=== PATIENT | female | born 1940 | race Caucasian/White ===

== ENCOUNTER 2025-08-21 09:58 | Outpatient (AMB) | payer MEDICARE, SELFPAY ==
--- NOTE | 2025-08-21 10:08 | A.OFFVIS_ITS ---
Intake Visit Reasons: Cognitive impairment- New Pt Paperwork Scanned in Allergies No Known Allergies Allergy (Verified 08/19/25 08:02) HPI Comments Details: This is a 84-year-old right-handed woman who is here with her son Patrick for neurological consultation. In the last 3 years she has been noted to have some personality change in that she no longer goes to visit her daughter or drive to see her sister and Shadia. She has stopped going to the senior center. She feels that it all started after COVID. She now has a sense of anxiety and some depression and some concerns about end of life. In the last few years she has lost a few of her friends. She has also developed macular degeneration and gets shots in her eyes but her vision is good enough that she still has a driving license and a car. She has become somewhat socially withdrawn. She sleeps well and eats well. She has recently been changed from Zoloft 50 mg 2 Celexa. She has type 2 diabetes and hypertension. She Matt time watching TV mostly game shows and soap opera shows and does some reading of mystery books. She is up-to-date on her medications and dosages and responds to questions accurately. 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 She has 3 children who live in the area: Erna the oldest lives in [place], Patrick and Vignesh. She says that she has had increased anxiety lately. She also feels that she is walking a little slower. [facility] Medical History (Updated 08/21/25 @ 10:26 by Brianda Jackson MD) Cognitive impairment Review of Systems Psych Reports anxiety, Reports depression and Reports anhedonia Physical Exam Neuro Other: ?Mini Mental Status Exam Level of Consciousness:?Alert.? Orientation:?Knows correct year, month, date, day and season.?Knows correct city, county and state. Knows correct location and floor.? Registration:?Able to register 3 objects.? Attention:?Serial 7's performed accurately to 93.? Recall:?Able to recall 2 out of 3 objects, and 3/3 when given multiple choices.? Language:?Normal spontaneous speech, fluency, repetition, naming, comprehension, reading, and writing.? Total Score:?29/30.? Neurological Abnormal neurological findings:??MMSE 29/30.? Mental Status:?Alert and oriented X 3.?Normal attention, orientation, memory, and affect.? Cranial Nerves:?Pupils are equal, round and reactive to light. Fundoscopy shows normal disc bilaterally. External occular muscles are intact. Visual macdonald are full, no ptosis. Face is symmetrical, no facial weakness or droop. Facial sensations are normal. Tongue protrudes in midline. Palate elevates symmetrically. Shoulder shrugging is normal.? Motor Examination:?Normal muscle tone, bulk and strength.?No atrophy or fasciculations.?No drift of the extended upper extremities.?Deep tendon re flexes are 2+.?Plantars are flexor.? Motor Strength:? Proximal Muscles (out of 5):?5 Distal Muscles (out of 5):?5 Neck Flexors (out of 5):?5 Neck Extensors (out of 5):?5 Deltoid (out of 5):?5 Biceps (out of 5):?5 Triceps (out of 5):?5 Serratus Anterior (out of 5):?5 Wrist Extensors (out of 5):?5 APB (out of 5):?5 Finger Spread (out of 5):?5 Ileopsoas (out of 5):?5 Quadriceps (out of 5):?5 Hamstrings (out of 5):?5 Tibialis Anterior (out of 5):?5 Peronei (out of 5):?5 EDB (out of 5):?5 Gastrocnemius (out of 5):?5 Straight Leg Raising:?90 degrees.? Sensory Exam:?Normal light touch, temperature, pinprick, vibration and joint-position sensations.?Rhomberg sign is absent.? Coordination:?No ataxia,?no titubation,?iwokua-ht-vcid, spog-iukw-ervc test, and rapid alternating movements were normal.? Gait Exam:?Within normal limits.? Cerebellar Signs:?Bwuaga-cm-wsrq and mtfl-dw-cpcm is normal.?No dysdiadochokinesia.? Extrapyramidal System:?No tremor or?rigidity, normal facial expressions.?No bradykinesia. No bradyphrenia. Normal arm swing and posture. No propulsion or retropulsion.? Speech:?Normal,?no dysphasia or dysarthria.? General Examination GENERAL APPEARANCE:??normal,?in no acute distress?,?normal,?in no acute distress.? HEAD:??normocephalic,?atraumatic.? EYES:??sclera non-icteric,?conjunctiva clear.? EARS:??auditory canal clear,?tympanic membrane intact, clear.? NOSE:??no lesions.? ORAL CAVITY:??gums normal,?mucosa moist,?no lesions.? THROAT:??clear.? NECK/THYROID:??no cervical lymphadenopathy,?thyroid normal,?neck supple, full range of motion,?no carotid bruit.? SKIN:??no rashes,?no significant birthmarks.? HEART:??S1, S2 normal,?no murmurs?,?S1, S2 normal,?no murmurs.? LUNGS:??clear anteriorly and posteriorly?,?clear anteriorly and post eriorly.? CHEST:??no gross rib deformity,?clear to auscultation.? BACK:??normal exam of spine.? MUSCULOSKELETAL:??normal.? EXTREMITIES:??no edema?,?no edema.? PERIPHERAL PULSES:??normal.? PSYCH:??alert, oriented,?cognitive function intact,?cooperative with exam?,?alert, oriented,?cognitive function intact,?cooperative with exam.? Assessment & Plan Assessment & Plan (1) MCI (mild cognitive impairment): Code(s): G31.84 - Mild cognitive impairment of uncertain or unknown etiology Category: Medical (2) Depression with anxiety: Code(s): F41.8 - Other specified anxiety disorders Category: Medical Plan MRI brain, EEG, labs Orders: Orders MR head/brain wo con 4 Weeks G31.84 - Mild cognitive impairment of uncertain or unknown etiology TSH reflex Free T4 Today G31.84 - Mild cognitive impairment of uncertain or unknown etiology Vitamin B12 and Folate Today G31.84 - Mild cognitive impairment of uncertain or unknown etiology EEG Routine Today G31.84 - Mild cognitive impairment of uncertain or unknown etiology Basic Metabolic Panel Today G31.84 - Mild cognitive impairment of uncertain or unknown etiology Coding Level of Care Code New Pt Level 5 (34152) Diagnoses MCI (mild cognitive impairment) G384 Depression with anxiety F41.8
--- OUTSIDE RECORDS SUMMARY | 2025-08-21 11:38 | XMS_ITS ---
Author Name [facility] Organization Unknown Care Team Organization Name Specialty Phone Email Start Date End Da te [facility] 05/15/2025 [facility] Wanda Mcbride Primary Care 03/04/202304/26 [facility] Laisha Zamora Primary Care 08/03/2022 05/14/20
--- OUTSIDE RECORDS SUMMARY | 2025-08-21 11:38 | XMS_ITS | Encounter Summary ---
Author Organization [facility] [place] [place] [address] Care Team Providers Care Supervisor Volunteer Services Name Role Phone Deborah Nagy MD Primary Care Provider [phone] Encounter Details Date Type Department Care Team (Late st Contact Info) Description 12/20/2024 Nurse Triage Adult Medicine [address] [phone] Wanda Mcbride PA [address] [place] [address] Social History Tobacco Use Types Packs/Day Years Used Date Smoking Tobacco: Never Smokeless Tobacco: Never Alcohol Use Standard Drinks/Week Comments No 0 (1 standard drink = 0.6 oz pur e alcohol) Comments Unknown Sex and Gender Information Value Date Recorded Sex Assigned at Female 10/16/2024 1:19 PM EST Legal Sex Female 5:47 PM EST Gender Identity Female 10/16/2024 1:19 PM EST Sexual Orientation Straight 10/16/2024 1: 19 PM EST documented as of this encounter Plan of Treatment Upcoming Encounters Date Type Department Care Team (Late st Contact Info) Description 10/02/2025 11:00 AM EST Appointment Radiology Department - [address] [phone] 10/07/2025 10:30 AM EST Office Visit Endocrinology - [address] [phone] Laisha Zamora PA [address] [place] [address] 10/14/2025 11:30 AM EST Office Visit Adult Medicine South - [address] [phone] Wanda Mcbride PA [address] [place] [address] documented as of this encounter Visit Diagnoses Not on filedocumented in this encounter Care Teams Supervisor Volunteer Services Relationship Specialty Start Date End Date Deborah Nagy MD [address] [place] [address] PCP - General Internal Medicine 06/23/21 documented as of this encounter
--- OUTSIDE RECORDS SUMMARY | 2025-08-21 11:38 | XMS_ITS | Clinical Summary ---
Author Organization Patient Business Ser [facility] Address [address] [place] [address] Care Team Providers Care Ball Winder Name Role Phone Deborah Nagy MD Primary Care Provider [phone] Allergies No known active allergies Medications FREESTYLE LANCETS MISC Use once daily to check blood sugar 3 Active insulin syringe-needle U-100 0.3 mL 31 gauge x 5/16 syringe USE TO INJECT INSULIN ONCE AT BEDTIME 4 Active magnesium glycinate 100 mg magnesium capsule Active blood sugar diagnostic (FreeStyle Lite Strips) test stripIndicatio ns:Type 2 diabetes mellitus with diabetic microalbuminur ia, without long-term current use of insulin ([facility] V24, [facility] V28) TEST ONCE DAILY TO CHECK BLOOD SUGAR 100 strip 1 5 Active insulin glargine,hum.r ec.anlog (Basaglar KwikPen U-100 Insulin) 100 unit/mL (3 mL) injection pen Inject 14 Units under the skin 1 (one) time each day. 45 mL 3 5 Active metFORMIN XR (GLUCOPHAGE-XR ) 500 mg 24 hr tablet Take 1 tablet (500 mg total) by mouth 1 (one) time each day with breakfast. 90 tablet 1 5 Active lisinopriL (PRINIVIL,ZEST RIL) 20 mg tablet Take 1 tablet (20 mg total) by mouth 1 (one) time each day. 90 each 1 5 11/13/19 26 Active sertraline (ZOLOFT) 25 mg tablet Take 1 tablet (25 mg total) by mouth at bedtime. 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 ia, without long-term current use of insulin ([facility] V24, [facility] V28) USE TO INJECT INSULIN AT BEDTIME 100 each 2 5 Active furosemide (LASIX) 20 mg tablet TAKE 1 TABLET EVERY OTHER DAY 45 tablet 1 5 Active furosemide (LASIX) 20 mg tablet TAKE 1 TABLET EVERY OTHER DAY 45 tablet 1 5 07/31/20 25 Discontinued Active Problems Problem Noted Date Diagnosed Date Subclinical hypothyroidism 08/21/2024 Microalbuminuria 05/30/2022 Type II diabetes mellitus wi th renal manifestations ([facility] V24, [facility] V28) 01/20/2022 Osteopenia 07/02/2019 Overview (08/21/2024): 10/2021: T-score lumbar (-1.4); hip (-2.0); FRAX 15% Dysthymia 11/09/2017 Familial tremor 10/18/2016 Overview (08/21/2024): Dr. Stanley in neurology Bronchial carcinoid tumors ([facility] V28) 008 Overview (04/11/2025): Seen at [facility] 2007 Allergic rhinitis 12/07/2005 Essential hypertension, benign 12/07/2005 Mixed hyperlipidemia 12/07/2005 Resolved Problems Problem Noted Date Diagnosed Date Resolved Date Colonoscopy refused 12/25/2024 04/11/20 25 Overview (12/25/2024): Per referral office message (12/25/24) Encounters Date Type Department Care Team Description 08/20/2025 Telephone Endocrinology [address] [phone] Laisha Zamora PA 08/16/[address] [phone] Laisha Zamora PA 07/30/[address] [phone] Liasha Zamora PA 06/07/2025 10:15 AM EDT Office Visit Adult Medicine [address] [phone] Deborah Nagy MD Essential hypertension, benign (Primary Dx); Type 2 diabetes mellitus with diabetic microalbuminuria, without long-term current use of insulin ([facility] V24, [facility] V28); Mixed hyperlipidemia; Hyponatremia from Last 3 Months Immunizations Immunization Administration Dates Next Due H1N1 Inj Preservative Free 10/20/2009 Influenza Quadravalent, MDCK , 0.5ml, with preservative (Flucelvax) 6mo and older 08/01/2017 Influenza trivalent, 0.5mL ( Fluad) 65yo and older 06/14/2024,06/10/2023,07/06/2022,06/25,07/02/2019,06/14/2018,06/23/2005 Influenza trivalent, 0.5mL, preservative free (Fluarix; FluLaval; Fluzone) ages 6mo and older (Afluria) 3 years and older 07/15/2008,06/26/2007 Influenza trivalent, with pr eservative (Fluzone; Afluria) 6mo and older 08/05/2016,08/04/2015,07/29/2014,07/20,08/07/2012,06/16/2011,06/09/2010 ,06/27/2009 Pneumococcal conjugate 13 va lent (Prevnar 13, PCV13) 2mo and older 11/21/2015 Pneumococcal conjugate 20 va lent (Prevnar 20, PCV 20) 2mo and older 03/19/2024 Pneumococcal polysaccharide 23 valent (Pneumovax 23) 2yo and older 02/22/2007 RSV, bivalent, protein subun it RSVpreF, 0.5mL, Preservative Free (Arexvy) 50yo and older 06/16/2023 Td Tetanus diptheria (Tdvax) 7yo and older 12/24/2022,06/26/2007 Tdap Tetanus diptheria acell ular pertussis (Boostrix; Adacel) 7yo and older 07/07/2012 Zoster recombinant (Shingrix ) 19yo and older 03/19/2024,12/20/2023 Surgical History Surgery Date Site/Laterality Comments TUBAL LIGATION HYSTERECTOMY 1970 : endometriosis, [place] COLONOSCOPY 10/07/2003 : normal COLONOSCOPY 10/18/2011 normal BREAST LUMPECTOMY 1996 Left : cancer, left, with radiation therapy BREAST REDUCTION 1998 Right right breast MULTIPLE TOOTH EXTRACTIONS HAND SURGERY Right ganglion Medical History Medical History Date Comments Allergic rhinitis, cause unspecified 12/07/2005 Subclinical hypothyroidism Osteopenia History of breast cancer 09/09/2005 Left br east Bronchial carcinoid tumors ([facility] V28) 008 Essential hypertension, benign 12/07/2005 Familial tremor 10/18/2016 Dr. Jaden manley n neurology Type II diabetes mellitus wi th renal manifestations ([facility] V24, [facility] V28) 01/20/2022 Microalbuminuria 05/30/2022 Mixed hyperlipidemia 12/07/2005 Family History Medical History Relation Name Comments Diabetes Brother Other: blockage in colon Father Heart attack Mother Hypertension Mother [place] Diabetes Sister Breast cancer Neg Hx Colon cancer Neg Hx Ovarian cancer Neg Hx Relation Name Status Comments Brother Father Maternal Grandfather Maternal Grandmother Mother Paternal Grandfather Paternal Grandmother Sister Social History Tobacco Use Types Packs/Day Years Used Date Smoking Tobacco: Never Smokeless Tobacco: Never Tobacco Cessation:Counseling Given: Not Answered Alcohol Use Standard Drinks/Week Comments No 0 (1 standard drink = 0.6 oz pur e alcohol) Comments No Sex and Gender Information Value Date Recorded Sex Assigned at Female 10/16/2024 1:19 PM EST Legal Sex Female 5:47 PM EST Gender Identity Female 10/16/2024 1:19 PM EST Sexual Orientation Straight 10/16/2024 1: 19 PM EST Obstetrics History Para Term AB IAB SAB Ectopic Multiple Livin g Live Births 3 3 3 Date Outcome GA Total Labor Labor/2nd/3rd Weight Sex Type Anes PTL Gifty A1 A5 Name Clin Term Term Term Last Filed Vital Signs Vital Sign Reading Time Taken Comments Blood Pressure 132/70 06/07/2025 10:16 AM EDT Pulse 75 06/07/2025 10:16 AM EDT Temperature 35.9 C (96.6 F) 06/07/2025 10:16 AM EDT Respiratory Rate 14 06/07/2025 10:16 AM EDT Oxygen Saturation 97% 06/07/2025 10:16 AM EDT Inhaled Oxygen Concentration - - Weight 74.9 kg (165 lb 3.2 oz) 06/07/2025 10:16 AM EDT Height 167.6 cm (5' 6 ) 06/07/2025 10:16 AM EDT Body Mass Index 26.66 06/07/2025 10:16 AM EDT Plan of Treatment Upcoming Encounters Date Type Department Care Team (Late st Contact Info) Description 10/02/2025 11:00 AM EST Appointment Radiology Department - [address] [phone] 10/07/2025 10:30 AM EST Office Visit Endocrinology - [address] [phone] Laisha Zamora PA [address] [place] [address] 10/14/2025 11:30 AM EST Office Visit Adult Medicine [address] [phone] Wanda Mcbride PA [address] [place] [address] Health Maintenance Due Date Last Done Comments Colorectal Cancer Screening: Colonoscopy 1941 Social Influencers of Health Screening 08/01/2022 Depression Screening 09/26/2024 06/14/2024 COVID-19 Vaccine ( season) 2025 06/29/2024, 06/16/2023, 07/06/2022, Additional history exists Influenza Vaccine (#1) 2025 , 06/14/2024, 06/10/2023, Additional history exists Falls Risk Assessment 06/14/2025 06/14/2024, 024 Medicare Annual Wellness Visit 06/14/2025 06/14/2024 Diabetes: Annual Foot Exam 07/30/2025 07/30/2024 Diabetes: Annual Urine Albumin-Creatinine Ratio (uACR) 10/16/2025 10/16/2024, 06/14/2024 Diabetes: Blood Sugar Control Test (HGBA1C) 11/17/2025 05/17/2025, 02/13/2025, 10/16/2024, Additional history exists Diabetes: Annual Retina Eye Exam 11/19/2025 11/19/2024, 12/19/2023 Diabetes: Annual GFR (Glomerular Filtration Rate) 06/07/2026 06/07/2025, 05/17/2025, 10/16/2024, Additional history exists Hypertension/CHF/CAD Annual BMP Blood Test 06/07/2026 06/07/2025, 05/17/2025, 10/16/2024, Additional history exists Cholesterol Screening (Lipid Panel) 06/14/2029 06/14/2024, 06/14/2024 Osteoporosis Screening (Bone Density Screening) 11/23/2031 11/23/2021, 04/16/2019 DTaP,Tdap,and Td Vaccines (4 - Td or Tdap) 12/24/2032 12/24/2022, 07/07/2012, 06/26/2007 RSV Immunization Adult Patients Completed 06/16/2023 Zoster Vaccines Completed 03/19/2024, 12/20/2023 Pneumococcal Vaccine: 50+ Years Completed 06/21/2024, 03/19/2024, 11/21/2015, Additional history exists HIB Vaccines Aged Out No longer eligi ble based on patient's age to complete this topic HPV Vaccines Aged Out No longer eligi ble based on patient's age to complete this topic Hepatitis A Vaccines Aged Out No long er eligible based on patient's age to complete this topic Hepatitis B Vaccines Aged Out No long er eligible based on patient's age to complete this topic IPV Vaccines Aged Out No longer eligi ble based on patient's age to complete this topic MMR Vaccines Aged Out No longer eligi ble based on patient's age to complete this topic Meningococcal ACWY Vaccine Aged Out N o longer eligible based on patient's age to complete this topic Meningococcal B Vaccine Aged Out No l onger eligible based on patient's age to complete this topic RSV Immunization Patients Under 20 months Aged Out No longer eligible based on patient's age to complete this topic Varicella Vaccines Aged Out No longer eligible based on patient's age to complete this topic Procedures Procedure Name Priority Date/Time Associated Diagnosis Comments BASIC METABOLIC PANEL Routine 06/07/2025 10:54 AM EDT Hyponatremia HEMOGLOBIN A1C Routine 05/17/2025 11:19 AM EDT Weakness Type 2 diabetes mellitus with diabetic microalbuminuria, without long-term current use of insulin ([facility] V24, [facility] V28) EXTERNAL DIABETIC RETINA EYE EXAM 11/19/2024 MICROALBUMIN CREATININE URINE RATIO Routine 10/16/2024 12:18 PM EST Type 2 diabetes mellitus with diabetic microalbuminuria, without long-term current use of insulin ([facility] V24, [facility] V28) DEPRESSION SCREENING Routine 06/14/2024 LIPID PANEL Routine 06/14/2024 FALLS RISK ASSESSMENT Routine 02/14/2024 DXA BONE DENSITY STUDY 1+ SITS AXIAL SKEL Routine 11/23/2021 10:56 AM EST Other specified disorders of bone density and structure, other site from Last 3 Months or Most Recently Relevant to Health Maintenance Results * (ABNORMAL) Basic metabolic panel (06/07/2025 10:54 AM EDT) Sodium 131(L) 133 - 145 mmol/L LAB CHEMISTRY METHOD 06/07/2025 3:28 PM EDT [facility] Potassium 4.5 3.5 - 5.5 mmol/L LAB CHEMISTRY METHOD 06/07/2025 3:28 PM [facility] Chloride 96 96 - 110 mmol/L LAB CHEMISTRY METHOD 06/07/2025 3:28 PM [facility] CO2 25 21 - 32 mmol/L LAB CHEMISTRY METHOD 06/07/2025 3:28 PM [facility] Anion Gap 10 3 - 11 LAB CHEMISTRY METHOD 06/07/2025 3:28 PM [facility] Glucose 116(H) 70 - 100 mg/dL LAB CHEMISTRY METHOD 06/07/2025 3:28 PM [facility] BUN 19 5 - 25 mg/dL LAB CHEMISTRY METHOD 06/07/2025 3:28 PM [facility] Creatinine 0.74 0.50 - 1.10 mg/dL LAB CHEMISTRY METHOD 06/07/2025 3:28 PM [facility] eGFR 80 >=60 mL/min/1. 73m2 LAB CHEMISTRY METHOD 06/07/2025 3:28 PM [facility] Comment:Calculation based on the Chronic Kidney Disease Epidemiology Collaboration (CKD-EPI) equation refit without adjustment for race. BUN/Creatinine Ratio 25.7 LAB CHEMISTRY METHOD 06/07/2025 3:28 PM [facility] Calcium 9.8 8.5 - 10.5 mg/dL LAB CHEMISTRY METHOD 06/07/2025 3:28 PM [facility] Blood Venous blood specimen / Unknown Venipuncture / Unknown 06/07/2025 10:54 AM EDT 06/07/2025 10:54 AM EDT us Deborah Nagy MD LAB BLOOD ORDERABLES Final Resul t [facility] [address] [place] [address], [place] [phone] * Hemoglobin A1c (05/17/2025 11:19 AM EDT) Hemoglobin A1C 6.2 <6.5 % LAB CHEMISTRY METHOD 05/17/2025 8:37 PM EDT [facility] Mean Bld Glu Estim. 131 mg/dL LAB CHEMISTRY METHOD 05/17/2025 8:37 PM EDT [facility] Blood Venous blood specimen / Unknown Venipuncture / Unknown 05/17/2025 11:19 AM EDT 05/17/2025 11:28 AM EDT Deborah Nagy MD LAB BLOOD ORDERABLES Final Resul t Performing Organization Address [facility]/State/ZIP Co de Phone Number [facility] [address] [place] [address], [place] [phone] * External Diabetic Retina Eye Exam Report (11/19/2024) Anatomical Region Laterality Modality Ultrasound us Provider [facility] US PROCEDURES Final Result * (ABNORMAL) Microalbumin creatinine urine ratio (10/16/2024 12:18 PM EST) Creatinine, Urine 63.0 mg/dL LAB CHEMISTRY METHOD 10/16/2024 3:34 PM EST [facility] Microalb, Ur 37.2(H) 0.0 - 29.0 mg/L LAB CHEMISTRY METHOD 10/16/2024 3:34 PM EST [facility] Microalb/Crea t Ratio 59(H) <30 mg/g creat LAB CHEMISTRY METHOD 10/16/2024 3:34 PM EST [facility] Urine Urine specimen from urethra / Unknown Non-blood Collection / Unknown 10/16/2024 12:18 PM EST 10/16/2024 12:18 PM EST Wanda GLASGOW LAB URINE ORDERABLES Final Re sult [facility] [address] [place] [address], * Depression Screening (06/14/2024) Depression Screening Abstracted Historical Provider HEALTH MAINTENANCE Final Result * Lipid panel (06/14/2024) LDL/HDL Ratio 3 0 - 4 Triglycerides 113 0 - 150 mg/dL Cholesterol 185 0 - 200 mg/dL HDL 74 >=40 mg/dL LDL Cholesterol 89 0 - 100 mg/dL Blood Venous blood specimen / Unknown [facility] Provider MD LAB BLOOD ORDERABLES Anita l Result * Falls Risk Assessment (02/14/2024) Pathologist [facility] Falls Risk Assessment Abstracted [facility] Provider [place] HEALTH MAINTENANCE Final Result * DXA BONE DENSITY STUDY 1+ SITS AXIAL SKEL (11/23/2021 10:56 AM EST) Anatomical Region Laterality Modality Bone Densitometr y 05/25/2021 11:3 7 AM EDT Narrative 11/23/2021 12:16 PM EST BONE DENSITY SCAN (DEXA): FINDINGS: Lumbar Spine T-score is -1.4. (SD relative to 20-29 y/o adult) Z-score is 1.3. (SD relative to age matched peers) This is considered osteopenia by WHO criteria. Left Hip T-score is -2.0. Z-score is 0.3. This is considered osteopenia by WHO criteria. Comparison exam(s): As recent as 04/16/2019 and as far back as 09/06/2001. No statistically significant change in bone mineral density compared with previous and baseline exams. IMPRESSION: IMPRESSION: Osteopenia by WHO criteria. This patient has a 15% risk of major osteoporotic fracture and a 4.3% risk of hip fracture over the next 10 years. (World Health Organization Fracture Risk Assessment) [facility] Department of Internal Medicine recommends using National Osteoporosis Foundation (NOF) guidelines in treatment decisions related to osteoporosis. NOF guidelines suggest considering treatment for postmenopausal women and men aged 50 or older presenting with the following: History of hip or vertebral fracture. T-score = -2.5 (DXA) at the femoral neck, total hip, or spine, after appropriate evaluation to exclude secondary causes. Low bone mass (T-score between -1.0 and -2.5 at the femoral neck or spine) AND a 10-year probability of a hip fracture = 3% OR a 10-year probability of a major osteoporosis-related fracture = 20% based on the [place]-adapted WHO algorithm Please note that all treatment decisions require clinical judgment and consideration of individual patient factors, including patient preferences, co-morbidities, previous drug use, risk factors not captured in the FRAX model (e.g., frailty, falls, vitamin D deficiency, increased bone turnover, interval significant decline in bone density) and possible under- or over-estimation of fracture risk by FRAX. Optional alternative screening schedule based on becka Morris., [facility] October 14, 2011 for patients with osteopenia (based on hip BMD T-score) is as follows: * advanced osteopenia (T scores -2.00 to -2.49), BMD testing every year * moderate osteopenia (T scores -1.50 to -1.99), BMD testing every 5 years mild osteopenia or normal BMD (T scores -1.50 and higher), BMD testing every 15 years Procedure Note Nighat Son MD - 09/14/2022 BONE DENSITY SCAN (DEXA): FINDINGS: Lumbar Spine T-score is -1.4. (SD relative to 20-29 y/o adult) Z-score is 1.3. (SD relative to age matched peers) This is considered osteopenia by WHO criteria. Left Hip T-score is -2.0. Z-score is 0.3. This is considered osteopenia by WHO criteria. Comparison exam(s): As recent as 04/16/2019 and as far back as 09/06/2001.No statistically significant change in bone mineral density compared with previous andbaseline exams. IMPRESSION: IMPRESSION: Osteopenia by WHO criteria. This patient has a 15% risk of majorosteoporotic fracture and a 4.3% risk of hip fracture over the next 10 years. (World HealthOrganization Fracture Risk Assessment) [facility] Department of Internal Medicine recommendsusing National Osteoporosis Foundation (NOF) guidelines in treatment decisions related toosteoporosis. NOF guidelines suggest considering treatment for postmenopausal women and menaged 50 or older presenting with the following: History of hip or vertebral fracture. T-score = -2.5 (DXA) at the femoral neck, total hip, or spine, afterappropriate evaluation to exclude secondary causes. Low bone mass (T-score between -1.0 and -2.5 at the femoral neck or spine)AND a 10-year probability of a hip fracture = 3% OR a 10-year probability of a majorosteoporosis-related fracture = 20% based on the [place]-adapted WHO algorithm Please note that all treatment decisions require clinical judgment andconsideration of individual patient factors, including patient preferences, co- morbidities,previous drug use, risk factors not captured in the FRAX model (e.g., frailty, falls, vitaminD deficiency, increased bone turnover, interval significant decline in bone density) andpossible under- or over-estimation of fracture risk by FRAX. Optional alternative screening schedule based on rafy Morris al., [place] 2011 for patients with osteopenia (based on hip BMD T-score) is as follows: * advanced osteopenia (T scores -2.00 to -2.49), BMD testing every year * moderate osteopenia (T scores -1.50 to -1.99), BMD testing every 5years mild osteopenia or normal BMD (T scores -1.50 and higher), BMD testingevery 15 years Laisha GLASGOW [facility] DXA PROCEDURES Final Result from Last 3 Months or Most Recently Relevant to Health Maintenance Insurance [facility]IC[facility] Care Teams Ball Winder Relationship Specialty Start Date End Date Deborah Nagy MD [address] [place] [address] PCP - General Internal Medicine 06/23/21
--- OUTSIDE RECORDS SUMMARY | 2025-08-21 11:38 | XMS_ITS | Encounter Summary ---
Author Organization [facility] [place] [address] Care Team Providers Care [employer] Machine Set Up Mechanic Name Role Phone Deborah Nagy MD Primary Care Provider [phone] Encounter Details Date Type Department Care Team (Late st Contact Info) Description 08/20/2025 Telephone Endocrinology - [place] [address] [place] [phone] Laisha Zamora PA [address] [place] [address] Social History Tobacco Use Types Packs/Day Years [...] PM EST documented as of this encounter Progress Notes * Haylie Palomo - 08/20/2025 9:00 AM EST Endocrine Call Primary endocrine provider: Laisha Zamora PA-C Is the endocrine provider in the office toady?: yes Who is calling? [employer]. If not the patient or parent/guardian please check for authorization to share/verbal release. Why is the person calling? [facility] is calling to request the patients most recent office notes signed my supervising MD. Please fax to [phone] documented in this encounter Plan of Treatment Upcoming Encounters Date Type Department Care Team (Late st Contact Info) Description 10/02/2025 11:00 AM EST Appointment Radiology Department - [address] [phone] 10/07/2025 10:30 AM EST Office Visit Endocrinology - [address] [phone] Laisha Zamora PA [address] [place] [address] 10/14/2025 11:30 AM EST Office Visit Adult Medicine [facility] - [address] [phone] Wanda Mcbride PA [address] [place] [address] documented as of this encounter Visit Diagnoses Not on filedocumented in this encounter Care Teams [employer] Set Up Mechanic Relationship Specialty Start Date End Date Deborah Nagy MD [address] [place] [address] PCP - General Internal Medicine 06/23/21 documented as of this encounter
--- OUTSIDE RECORDS SUMMARY | 2025-08-21 11:38 | XMS_ITS | Clinical Summary ---
Author Organization [facility] Address [address] [place] [address] Phone Care Team Providers Care Warehouse Stocker Name Role Phone Mehul Mendiola MD Primary Care Provider Unavail able Active Problems Problem Noted Date Diagnosed Date Diabetes mellitus 05/23/2014 Overview (11/15/2014): Diabetes mellitus Social History Tobacco Use Types Packs/Day Years Used Date Smoking Tobacco: Former Education Answer Date Recorded Are you interested in more education? Not on dorothy e 01/21/2023 Are you concerned about learning? Not on file 01/21/2023 No 01/21/2023 No 01/21/2023 Digital Access Answer Date Recorded No 02/21/2023 No 02/21/2023 No 02/21/2023 Reliable internet access at home? Not on file 02/21/2023 Device with a working camera? Not on file Comments Unknown Sex and Gender Information Value Date Recorded Sex Assigned at Not on file Legal Sex Female 10:09 AM EDT Gender Identity Not on file Sexual Orientation Not on file Last Filed Vital Signs Vital Sign Reading Time Taken Comments Blood Pressure 139/70 05/15/2014 1:52 PM EDT Pulse 57 05/15/2014 1:52 PM EDT Temperature 36.3 C (97.4 F) 05/15/2014 1:52 PM EDT Respiratory Rate 16 05/15/2014 1:52 PM EDT Oxygen Saturation - - Inhaled Oxygen Concentration - - Weight 80.2 kg (176 lb 12.9 oz) 05/15/2014 1:52 PM EDT Height 167.5 cm (5' 5.95 ) 05/15/2014 1:52 PM ED T Body Mass Index 28.59 05/15/2014 1:52 PM EDT Plan of Treatment Health Maintenance Due Date Last Done Comments BLOOD PRESSURE 1941 HEMOGLOBIN A1C 1941 DEPRESSION SCREENING 1953 LIPID PANEL 11/28/1959 ZOSTER VACCINES (1 of 2) 11/28/1991 OSTEOPOROSIS SCREENING INITIAL (ONE-TIME) 2006 DIABETIC EYE EXAM 11/15/2014 URINE MICROALBUMIN/CREATININE RATIO 11/15/2014 RSV VACCINE (1 - 1-dose 75+ series) 2016 Adult Td,Tdap Booster 07/07/2022 07/07/2012, 007 INFLUENZA VACCINE (#1) 2025 0, 07/02/2019, 06/14/2018, Additional history exists COVID-19 VACCINE ( season) 2025 11/16/2020, 10/25/2020 PNEUMOCOCCAL VACCINES (50+ years) Completed 11/21/2015, 02/22/2007 HEPATITIS A VACCINES Aged Out No long er eligible based on patient's age to complete this topic HIB VACCINES Aged Out No longer eligi ble based on patient's age to complete this topic IPV VACCINES Aged Out No longer eligi ble based on patient's age to complete this topic MENINGOCOCCAL VACCINES (ACWY) Aged Out No longer eligible based on patient's age to complete this topic MENINGOCOCCAL VACCINES (B) Aged Out N o longer eligible based on patient's age to complete this topic Medical Devices Not on file Insurance MEDICARE PART A & B [employer] CROSS MEDEX SUPPLEMENT MEDICARE PART A & B [employer] MEDEX SUPPLEMENT MEDICARE PART A & B [employer] MEDEX SUPPLEMENT MEDICARE PART A & B [employer] MEDEX SUPPLEMENT MEDICARE PART A & B [employer] MEDEX SUPPLEMENT MEDICARE PART A & B [employer] MEDEX SUPPLEMENT MEDICARE PART A & B [employer] MEDEX SUPPLEMENT MEDICARE PART A & B [employer] MEDEX SUPPLEMENT MEDICARE PART A & B [employer] MEDEX SUPPLEMENT Advance Directives For more information, please contact: [phone] (9AM - 5PM Janett/[facility], Tuesday-Tuesday) Documents on File Type Date Recorded Patient Supervisor Grounds Expl anation Advance Directive - Non Epic LMR 01/19/2011 12:00 AM Care Teams Warehouse Stocker Relationship Specialty Start Date End Date Mehul Mendiola MD PCP - General 01/31/15 Additional Source Comments The information contained in this document represents components of the legal health record. It is not the complete legal health record.[facility]
--- OUTSIDE RECORDS SUMMARY | 2025-08-21 11:38 | XMS_ITS | Encounter Summary ---
Author Organization [facility] [place] [address] Care Team Providers Care Telecommunications Line Installer Name Role Phone Deborah Nagy MD Primary Care Provider [phone] Reason for Visit * Reason Onset Date Comments Diabetic Shoes 07/30/2025 Encounter Details Date Type Department Care Team (Late st Contact Info) Description 07/30/2025 Telephone Endocrinology - [place] [address] [place] [phone] Laisha Zamora PA [address] [place] [address] Social History Tobacco Use Types Packs/Day Years [...] as of this encounter Progress Notes * PEE Henry - 08/02/2025 12:08 PM EST ordered * Asa Paula - 07/30/2025 4:36 PM EST Endocrine Call Primary endocrine provider: Laisha Zamora PA-C Is the endocrine provider in the office toady?: yes Who is calling? The patient. If not the patient or parent/guardian please check for authorization to share/verbal release. Why is the person calling? Other question/concern: Pt calling to discuss diabetic shoes. She says she would like to go through prosthetic and orthotics [address] [place] [address] in [facility] [phone] . Please forward to endocrine pool (p [phone]). documented in this encounter Plan of Treatment Upcoming Encounters Date Type Department Care Team (Late st Contact Info) Description 10/02/2025 11:00 AM EST Appointment Radiology Department - [address] [phone] 10/07/2025 10:30 AM EST Office Visit Endocrinology - [address] [phone] Laisha Zamora PA [address] [place] [address] 10/14/2025 11:30 AM EST Office Visit Adult Medicine South - [address] [phone] Wanda Mcbride PA [address] [place] [address] documented as of this encounter Visit Diagnoses Diagnosis Type 2 diabetes mellitus with diabetic microalbuminuria, without long-term current use of insulin (CMS/HCC V24, CMS/HCC V28)- Primary documented in this encounter Orders General Supply Count Last Ordered Date First Or dered Date DIABETIC CUSTOM MOLDED SHOE WITH INSERTS 1 08/02/2025 documented in this encounter Care Teams Telecommunications Line Installer Relationship Specialty Start Date End Date Deborah Nagy MD [address] [place] [address] PCP - General Internal Medicine 06/23/21 documented as of this encounter
--- OUTSIDE RECORDS SUMMARY | 2025-08-21 11:38 | XMS_ITS | Encounter Summary ---
Author Organization [facility] [place] [address] Care Team Providers Care Manager Truck Name Role Phone Deborah Nagy MD Primary Care Provider [phone] Reason for Visit * Reason Onset Date Comments Hypoglycemia 08/16/2025 Encounter Details Date Type Department Care Team (Late st Contact Info) Description 08/16/2025 Telephone [facility] [place] [address] [place] [address] Laisha Zamora PA [address] [place], [place] Social History Tobacco Use Types Packs/Day Years [...] as of this encounter Progress Notes * Precious Kidd RN - 08/16/2025 9:36 AM EST Called and spoke with patient FBS was 95 not 15 Pt ate a banana and hard boiled egg Repeat BS 103- while I was on the phone Pt is ASX, just called to let us know her BS was 95 She denies any events of hypoglycemia <70 Pt taking Basaglar 14 units at HS * Haylie Palomo - 08/16/2025 9:23 AM EST Endocrine Call Primary endocrine provider: Laisha Zamora PA-C Is the endocrine provider in the office toady?: yes Who is calling? The patient. If not the patient or parent/guardian please check for authorization to share/verbal release. Why is the person calling? Symptoms/side effects. High or low blood sugar. Blood sugar lower than 70 and/or higher than 400 AT TIME OF CALL. Please forward HIGH PRIORITY to endocrine nurse pool (p [phone]). Pt is calling stating her blood sugar is currently at 15 documented in this encounter Plan of Treatment Upcoming Encounters Date Type Department Care Team (Late st Contact Info) Description 10/02/2025 11:00 AM EST Appointment Radiology Department - [address] [phone] 10/07/2025 10:30 AM EST Office Visit Endocrinology - [address] [phone] Laisha Zamora PA [address] [place] [address] 10/14/2025 11:30 AM EST Office Visit Adult Medicine South - [address] [phone] Wanda Mcbride PA [address] [place] [address] documented as of this encounter Visit Diagnoses Not on filedocumented in this encounter Care Teams Manager Truck Relationship Specialty Start Date End Date Deborah Nagy MD [address] [place] [address] PCP - General Internal Medicine 06/23/21 documented as of this encounter
== END 2025-08-21 10:37 | disposition home or self-care (01) ==
LOC: HO.HSM 09:59
PROVIDERS: Visit Provider Psychiatry & Neurology Neurology
DX: G31.84 Mild cognitive impairment of uncertain or unknown etiology (principal); F41.8 Other specified anxiety disorders
CPT/HCPCS: 99205

== ENCOUNTER 2025-08-21 09:58 | Outpatient (REF) | payer MEDICARE, SELFPAY ==
[2025-08-21 12:22] LABS: Anion Gap 13 (12-20); Blood Urea Nitrogen 26 mg/dL (9-16); Calcium 10.0 mg/dL (8.4-10.2); Carbon Dioxide 26 mmol/L (22-29); Chloride 104 mmol/L (96-108); Estimated Glomerular Filt Rate > 60; Potassium 4.8 mmol/L (3.3-5.1); Sodium 138 mmol/L (135-145)
[2025-08-21 13:02] LABS: Folate 19.3 ng/mL (> or = 4.0); Vitamin B12 576 pg/mL (200-900)
== END 2025-08-21 09:59 | disposition home or self-care (01) ==
LOC: HO.LAB 09:58
PROVIDERS: PCP Internal Medicine; Visit Provider Psychiatry & Neurology Neurology
DX: F41.8 Other specified anxiety disorders (principal); G31.84 Mild cognitive impairment of uncertain or unknown etiology
CPT/HCPCS: 36415; 80048; 82607; 82746; 84443

== ENCOUNTER → 2025-09-25 09:46 | Outpatient (BNV) | payer MEDICARE, SELFPAY | PROVIDERS: Visit Provider Radiology Diagnostic Radiology | DX: I67.82 Cerebral ischemia (principal) | CPT/HCPCS: 70551 ==

== ENCOUNTER 2025-09-25 09:49 | Outpatient (REF) | payer MEDICARE, SELFPAY ==
--- OUTSIDE RECORDS SUMMARY | 2024-06-14 06:30 | XMS_ITS ---
Author Organization [facility] Address [address] [place] [id number] Care Team Providers Care Public Address Systems Mechanic Name Role Phone Deborah Nagy Primary Care Provider Unavailabl Bertram Dillard Unavailable [phone] Encounters Encounter Location Date Provider Diagnosis [facility] [address] [address] 06/14/2024 Bertram Ordaz Plan Of Treatment Next Appt Details Provider Name:Bertram Ordaz , 09/30/2025 10:00:00 AM, [address], [phone], Progress Notes * Noe GARCIAeDOB:[birth year] (84 yo F)Acc No.[id number]:06/14/2024 Progress Note Patient: Guerline BOSS Provider: De Ordaz DPM :1940 A ge:83 Y S ex:Female Date:06/14/2024 [place], [id number] Pcp:Deborah Nagy Subjective: * Chief Complaints: * * Medical History: Objective: * Vitals: Assessment: Plan: * Treatment: * Images: * The named appointment provid er may or may not be the originator of this progress note, and it is not deemed complete until electronically signed by the appointment provider. Sign off status: Pending * Provider: De Ordaz DPM Date: 0 06/14/2024 Generated for Janice cross/Cecilia/Gordon on: 1 10:42 AM EST
--- NOTE | ~2025-09-25 | MR_ITS ---
EXAMINATION: MR BRAIN WITHOUT CONTRAST CLINICAL INFORMATION: Mild cognitive impairment of an known or uncertain etiology. 84-year-old female. COMPARISON: None available. TECHNIQUE: MRI of the brain was obtained using routine sequences without contrast. Examination performed on a 1.5 Sisi Siemens high-field unit. Standard sequences were utilized. FINDINGS: There is no diffusion restriction. There is no intracranial hemorrhage, acute infarction, mass effect, or edema. Ventricles, sulci, and cisterns are mildly diffusely prominent, in keeping with age-related cerebral and cerebellar volume loss. No hydrocephalus. No shift of midline. No abnormal hemosiderin deposition is identified. There are a few scattered punctate foci of white matter T2 hyperintensity in the periventricular, subcortical, and hemispheric deep white matter. These foci are nonspecific but statistically relate to small vessel ischemic changes. Midline structures appear normally formed. The pituitary gland appears normal. Posterior fossa structures appear normal. Cerebellar tonsils are appropriately located. Major flow voids are preserved within the skull base. The globes and orbital contents demonstrate bilateral lens replacements. Paranasal sinuses are clear bilaterally. Trace fluid in the left mastoid tip. The mastoids and tympanic cavities are otherwise normally aerated. Extracranial soft tissues demonstrate no abnormalities. No suspicious bone marrow changes are evident. Mild to moderate degenerative changes bilateral TM joints. Atlantoaxial joint demonstrates mild to moderate degenerative changes. MR/MR head/brain wo con IMPRESSION: 1. No evidence of intracranial hemorrhage, acute infarction, mass effect, or edema. 2. Age-appropriate cerebral and cerebellar volume loss. No asymmetric pattern of atrophy. 3. There are very mild white matter changes of small vessel ischemia. Electronically signed by: Enrique Knox MD 09/25/2025 11:41 AM EST
--- OUTSIDE RECORDS SUMMARY | 2025-09-25 10:43 | XMS_ITS | Clinical Summary ---
Author Organization Patient Business [facility] Address [address] [place] [address] Care Team Providers Care Cook Roast Name Role Phone Deborah Nagy MD Primary Care Provider [phone] Allergies No known active allergies Medications FREESTYLE [...] ia, without long-term current use of insulin ([facility] V24, [facility] V28) TEST ONCE DAILY TO CHECK BLOOD [...] 90 each 1 5 11/13/19 26 Active rosuvastatin (CRESTOR) 5 mg tablet TAKE 1 TABLET AT BEDTIME 90 tablet 1 5 Active Ultra-Fine Pen Needle 31 gauge x 5/16 needleIndicati ons:Type 2 diabetes mellitus with diabetic microalbuminur ia, without long-term current use of insulin ([facility] V24, [facility] V28) USE TO INJECT INSULIN AT BEDTIME 100 each 2 5 Active furosemide (LASIX) 20 mg tablet TAKE 1 TABLET EVERY OTHER DAY 45 tablet 1 5 Active sertraline (ZOLOFT) 25 mg tablet TAKE 1 TABLET AT BEDTIME 90 tablet 1 5 Active sertraline (ZOLOFT) 25 mg tablet Take 1 tablet (25 mg total) by mouth at bedtime. 90 tablet 5 09/12/20 25 Discontinued Active Problems Problem Noted Date Diagnosed Date Subclinical hypothyroidism 08/21/2024 Microalbuminuria 05/30/2022 Type II diabetes mellitus with renal manifestati ons 01/20/2022 Osteopenia 07/02/2019 Overview (08/21/2024): 10/2021: T-score lumbar (-1.4); hip (-2.0); FRAX 15% Dysthymia 11/09/2017 Familial tremor 10/18/2016 Overview (08/21/2024): Dr. 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 Overview (04/11/2025): Seen at [facility] 2007 Allergic rhinitis 12/07/2005 Essential hypertension, benign 12/07/2005 Mixed hyperlipidemia 12/07/2005 Resolved Problems Problem Noted Date Diagnosed Date Resolved Date Colonoscopy refused 12/25/2024 04/11/20 Overview (12/25/2024): Per referral office message (12/25/24) Encounters Date Type Department Care Team Description 08/20/2025 Telephone Endocrinology - [address] [phone] Laisha Zamora PA 08/16/2025 Telephone Endocrinology [address] [phone] Laisha Zamora PA 07/30/[address] [phone] Laisha Zamora PA from Last 3 Months Immunizations Immunization Administration [...] 09/09/2005 Left br east Bronchial carcinoid tumors ([facility] V28) 008 Essential hypertension, benign 12/07/2005 Familial tremor 10/18/2016 Dr. Jaden shelton neurology Type II diabetes mellitus wi th renal manifestations ([facility] V24, [facility] V28) 01/20/2022 Microalbuminuria 05/30/2022 Mixed hyperlipidemia 12/07/2005 Family History Medical History Relation Name Comments Diabetes Brother Other: blockage in colon Father Heart attack Mother Hypertension Mother [place] Diabetes Sister Breast cancer Neg Hx Colon [...] 11:00 AM EST Appointment Radiology Department - [address] [phone] 10/07/2025 10:30 AM EST Office Visit Endocrinology - [address] [phone] Laisha Zamora PA [address] [place] [address] 10/16/2025 11:30 AM EST Office Visit Adult [facility] - [address] [phone] Wanda Mcbride PA [address] [place], [place] Health Maintenance Due Date Last Done Comments [...] microalbuminuria, without long-term current use of insulin ([facility] V24, [facility] V28) EXTERNAL DIABETIC RETINA EYE EXAM 11/19/2024 MICROALBUMIN CREATININE URINE RATIO Routine 10/16/2024 12:18 PM EST Type 2 diabetes mellitus with diabetic microalbuminuria, without long-term current use of insulin ([facility] V24, [facility] V28) DEPRESSION SCREENING Routine 06/14/2024 LIPID PANEL [...] LAB CHEMISTRY METHOD 06/07/2025 3:[address] [facility] Potassium 4.5 3.5 - 5.5 mmol/L LAB CHEMISTRY METHOD 06/07/2025 3:[address] [facility] Chloride 96 96 - 110 mmol/L LAB CHEMISTRY METHOD 06/07/2025 3:28 PM [facility] CO2 25 21 - 32 mmol/L LAB CHEMISTRY METHOD 06/07/2025 3:28 PM EDT [facility] Anion Gap 10 3 - 11 LAB CHEMISTRY METHOD 06/07/2025 3:[address] [facility] Glucose 116(H) 70 - 100 mg/dL LAB CHEMISTRY METHOD 06/07/2025 3:[address] [facility] BUN 19 5 - 25 mg/dL LAB CHEMISTRY METHOD 06/07/2025 3:[address] [facility] Creatinine 0.74 0.50 - 1.10 mg/dL LAB CHEMISTRY METHOD 06/07/2025 3:[address] [facility] eGFR 80 >=60 mL/min/1. 73m2 LAB CHEMISTRY METHOD 06/07/2025 3:[address] [facility] Comment:Calculation based on the Chronic Kidney Disease Epidemiology Collaboration (CKD-EPI) equation refit without adjustment for race. BUN/Creatinine Ratio 25.7 LAB CHEMISTRY METHOD 06/07/2025 3:[address] [facility] Calcium 9.8 8.5 - 10.5 mg/dL LAB CHEMISTRY METHOD 06/07/2025 3:[address] [facility] Blood Venous blood specimen / Unknown Venipuncture / Unknown 06/07/2025 10:54 AM EDT 06/07/2025 10:54 AM EDT us Deborah Nagy MD LAB BLOOD ORDERABLES Final Resul t [facility] [address] [place] [address], * Hemoglobin A1c (05/17/2025 11:19 AM EDT) Hemoglobin A1C 6.2 <6.5 % LAB CHEMISTRY METHOD 05/17/2025 8:[address] [facility] Mean Bld Glu Estim. 131 mg/dL LAB CHEMISTRY METHOD 05/17/2025 8:[address] [facility] Blood Venous blood specimen / Unknown Venipuncture / Unknown 05/17/2025 11:19 AM EDT 05/17/2025 11:28 AM EDT Deborah Nagy MD LAB BLOOD ORDERABLES Final Resul t Performing Organization Address [facility]/ZIP Co de Phone Number [facility] [address] [place] [address], [place] [phone] * External Diabetic Retina Eye Exam Report (11/19/2024) Anatomical Region Laterality Modality Ultrasound Provider [facility] US PROCEDURES Final Result * (ABNORMAL) Microalbumin creatinine urine ratio (10/16/2024 12:18 PM EST) Creatinine, Urine 63.0 mg/dL LAB CHEMISTRY METHOD 10/16/2024 3:[address] [facility] Microalb, Ur 37.2(H) 0.0 - 29.0 mg/L LAB CHEMISTRY METHOD 10/16/2024 3:[address] [facility] Microalb/Crea t Ratio 59(H) <30 mg/g creat LAB CHEMISTRY METHOD 10/16/2024 3:[address] [facility] Urine Urine specimen from urethra / Unknown Non-blood Collection / Unknown 10/16/2024 12:18 PM EST 10/16/2024 12:18 PM EST Wanda GLASGOW LAB URINE ORDERABLES Final Re sult [facility] [address] [place] [address], * Depression Screening (06/14/2024) Depression Screening Abstracted Sabrina Matias MD HEALTH MAINTENANCE Final Result * Lipid panel (06/14/2024) LDL/HDL Ratio 3 0 - 4 Triglycerides 113 0 - 150 mg/dL Cholesterol 185 0 - 200 mg/dL HDL 74 >=40 mg/dL LDL Cholesterol 89 0 - 100 mg/dL Blood Venous blood specimen / Unknown Historical Provider LAB BLOOD ORDERABLES Anita l Result * Falls Risk Assessment (02/14/2024) Pathologist [facility] Falls Risk Assessment Abstracted Historical Provider HEALTH MAINTENANCE Final Result * DXA BONE [...] (World Health Organization Fracture Risk Assessment) [facility] Department of Internal Medicine recommends using National [...] alternative screening schedule based on becka Morris., [facility] October 14, 2011 for patients with osteopenia [...] years. (World HealthOrganization Fracture Risk Assessment) [facility] Department of Internal Medicine recommendsusing National Osteoporosis [...] screening schedule based on rafy Morris al., NEJMJanuary 2011 for patients with osteopenia (based on hip BMD T-score) is as follows: * advanced osteopenia (T scores -2.00 to -2.49), BMD testing every year * moderate osteopenia (T scores -1.50 to -1.99), BMD testing every 5years mild osteopenia or normal BMD (T scores -1.50 and higher), BMD testingevery 15 years Laisha GLASGOW IMG DXA PROCEDURES Final Result from Last 3 Months or Most Recently Relevant to Health Maintenance Insurance MEDICARE [facility] Care Teams Cook Roast Relationship Specialty Start Date End Date Deborah Nagy MD [address] [place] [address] PCP - General Internal Medicine 06/23/21
--- OUTSIDE RECORDS SUMMARY | 2025-09-25 10:43 | XMS_ITS | Encounter Summary ---
Author Organization [facility] [place] [address] Care Team Providers Care Dramatic Director Name Role Phone Deborah Nagy MD Primary Care Provider [phone] Encounter Details Date Type Department Care Team (Late st Contact Info) Description 08/20/2025 Telephone Endocrinology - [place] [address] [place] [phone] Laisha Zamora PA [address] [place] [address] Social History Tobacco Use Types Packs/Day Years [...] signed my supervising MD. Please fax to [phone] documented in this encounter Plan of Treatment Upcoming Encounters Date Type Department Care Team (Late st Contact Info) Description 10/02/2025 11:00 AM EST Appointment Radiology Department - [address] [phone] 10/07/2025 10:30 AM EST Office Visit Endocrinology - [address] [phone] Laisha Zamora PA [address] [place] [address] 10/16/2025 11:30 AM EST Office Visit Adult Medicine [facility] - [address] [phone] Wanda Mcbride PA [address] [place] [address] documented as of this encounter Visit Diagnoses Not on filedocumented in this encounter Care Teams Dramatic Director Relationship Specialty Start Date End Date Deborah Nagy MD [address] [place] [address] PCP - General Internal Medicine 06/23/21 documented as of this encounter
--- OUTSIDE RECORDS SUMMARY | 2025-09-25 10:43 | XMS_ITS | Clinical Summary ---
Author Organization [facility] Address [address] [place] [phone] Phone Care Team Providers Care Lath Tier Name Role Phone Mehul Mendiola MD Primary [...] file Insurance MEDICARE PART A & B [employer] MED[employer] SUPPLEMENT MEDICARE PART A & B [employer] SUPPLEMENT MEDICARE PART A & B [employer] MEDEX SUPPLEMENT MEDICARE PART A & B [employer] MEDEX SUPPLEMENT MEDICARE PART A & B [employer] MEDEX SUPPLEMENT MEDICARE PART A & B [employer] MEDEX SUPPLEMENT MEDICARE PART A & B [facility] MEDEX SUPPLEMENT MEDICARE PART A & B [employer] MEDEX SUPPLEMENT MEDICARE PART A & B [employer] MEDEX SUPPLEMENT Advance Directives For more information, please contact: [phone] (9AM - 5PM [facility], Tuesday-Tuesday) Documents on File Type Date Recorded Patient Supervisor Mail Carriers Expl anation Advance Directive - Non Epic LMR 01/19/2011 12:00 AM Care Teams Lath Tier Relationship Specialty Start Date End Date Mehul Mendiola MD PCP - General 01/31/15 Additional Source Comments The information contained in this document represents components of the legal health record. It is not the complete legal health record.[facility]
--- OUTSIDE RECORDS SUMMARY | 2025-09-25 10:43 | XMS_ITS | Encounter Summary ---
Author Organization [facility] [address] [place] [address] Care Team Providers Care Overedge Sewer Name Role Phone Deborah Nagy MD Primary Care Provider [phone] Encounter Details Date Type Department Care Team (Late st Contact Info) Description 12/20/2024 Nurse Triage Adult Medicine [address] [phone] Wanda Mcbride PA [address] [place] [address] Social History Tobacco Use Types Packs/Day Years [...] 11:00 AM EST Appointment Radiology Department - [address] [phone] 10/07/2025 10:30 AM EST Office Visit Endocrinology - [address] [phone] Laisha Zamora PA [address] [place] [address] 10/16/2025 11:30 AM EST Office Visit Adult Medicine South - [address] [phone] Wanda Mcbride PA [address] [place] [address] documented as of this encounter Visit Diagnoses Not on filedocumented in this encounter Care Teams Overedge Sewer Relationship Specialty Start Date End Date Deborah Nagy MD [address] [place] [address] PCP - General Internal Medicine 06/23/21 documented as of this encounter
--- OUTSIDE RECORDS SUMMARY | 2025-09-25 10:43 | XMS_ITS | Patient Health Record ---
[facility] Address [address] [place] [address] Care Team Providers Care Regional Retail Sales Manager Name Role Phone Deborah Nagy Primary Care Provider Bertram Mart Unavailable [phone] Allergies Allergen (clinical drug ingredient) Drug/Non Drug Allergy documented on EMR Reaction Allergy Type Onset Date Status Latex Latex per pt no allergy 09/08/23 Allergy Active Results Component Value Reference Range Notes HEMOGLOBIN A1C (GLYCOHEMOGLO BIN) Reviewed date:03/07/2025 11:19:23 AM Interpretation: Performing Lab: Notes/Report: HEMOGLOBIN A1C % (HH) 6.4 HEMOGLOBIN A1C (GLYCOHEMOGLO BIN) Reviewed date:06/10/2025 11:17:58 AM Interpretation: Performing Lab: Notes/Report: HEMOGLOBIN A1C % (HH) 5.2 Reason For Referral No Information Medications Medication SIG (Take, Route, Frequency, Duration) Notes Start Date End Date Status Furosemide Active Basaglar KwikPen 14 units Act jesus Lisinopril 20 MG 1 tablet daily Active Rosuvastatin Calcium Active metFORMIN HCl Active Extra Depth Orthopedic Shoes, (1) Pair With (3) Pair Custom Heat Molded Multidensity Innersoles Dx: NIDDM/PVD(E11.51), Hammertoe Foot Deformity(M20.41,M20.42), Preulcerative Skin Lesion(s)(L85.1) Wear Daily; Duration: 365 days Active Immunizations Vaccine Route Administration Date Status Comme nts Influenza Unknown 07/05/2024 Administered Pneumococcal Unknown 06/21/2024 Administered Social History Tobacco Use: Social History Observation Description Date Details (start date - stop date) Never Smoker NA - NA Tobacco use other than smoking: Question Answer Notes Are you an other tobacco user? No Tobacco Control (Standard) Question Answer Notes Tobacco use: Nonsmoker Additional Findings: Tobacco non-user Current no nsmoker AUDIT-C (Standard) Question Answer Notes Did you have a drink containing alcohol in the p ast year? No Points 0 Interpretation Negative Problems Problem Type SNOMED Code ICD Code Onset Dates Problem Status W/U Status Risk Notes Problem Acquired hammer toe of right foot (5107048366836 105) Other hammer toe(s) (acquired), right foot (M20.41) Active confirmed Response to treatment,I mprovement Problem Type 2 diabetes mellitus with peripheral angiopathy (255122861) Type 2 diabetes mellitus with diabetic peripheral angiopathy without gangrene (E11.51) Active confirmed Q7(A), Q8(2B), Q9(1B,2C) Problem Acquired hammer toe of left foot (2937064835010 103) Other hammer toe(s) (acquired), left foot (M20.42) Active confirmed Response to treatment,I mprovement Vital Signs Heart Rate 66 /min 03/07/2025 Blood pressure diastolic 70 mm Hg 06/10/2025 Height 5ft 6in in 06/10/2025 Blood pressure systolic 132 mm Hg 06/10/2025 Weight 170 lbs 06/10/2025 BMI 27.44 kg/m2 06/10/2025 Procedures Procedure Date Ordered Date Performed Result Body Sit e 16340-AFOZTEK NAIL, 6 OR MORE 11/01/2024 N/A 29340-RQYE SKIN LESIONS, OVER 4 11/01/2024 N/A 13862-HCDEFET NAIL, 6 OR MORE 03/07/2025 N/A 77789-Ckkpmimj Plate 03/07/2025 N/A 08012-UMEY SKIN LESIONS, OVER 4 03/07/2025 N/A 96613-QOZYRIP NAIL, 6 OR MORE 06/10/2025 N/A 14240-QAHP SKIN LESIONS, OVER 4 06/10/2025 N/A Encounters Encounter Location Date Provider [facility] [address] [place] [id number] 11/01/2024 Bertram Ordaz Type 2 diabetes mellitus with diabetic peripheral angiopathy without gangrene E11.51 ; Tinea unguium B35.1 ; Pain in right toe(s) M79.674 and Pain in left toe(s) M79.[address] [address] 03/07/2025 Bertram Ordaz Type 2 diabetes mellitus with diabetic peripheral angiopathy without gangrene E11.51 ; Tinea unguium B35.1 ; Pain in right toe(s) M79.674 ; Pain in left toe(s) M79.675 ; Other hammer toe(s) (acquired), left foot M20.42 ; Other hammer toe(s) (acquired), right foot M20.41 and Ingrown nail L60.[address] [address] 06/10/2025 Bertram Ordaz Type 2 diabetes mellitus with diabetic peripheral angiopathy without gangrene E11.51 ; Tinea unguium B35.1 ; Pain in right toe(s) M79.674 and Pain in left toe(s) M79.675 Assessments Encounter Date Diagnosis (ICD Code) Assessment Notes Treatment Notes Treatment Clinical Notes Section Notes 11/01/2024 Type 2 diabetes mellitus with diabetic peripheral angiopathy without gangrene (ICD-10 - E11.51) Q7(A), Q8(2B), Q9(1B,2C) 11/01/2024 Tinea unguium (ICD-10 - B35.1) 03/07/2025 Type 2 diabetes mellitus with diabetic peripheral angiopathy without gangrene (ICD-10 - E11.51) 06/10/2025 Type 2 diabetes mellitus with diabetic peripheral angiopathy without gangrene (ICD-10 - E11.51) 06/10/2025 Tinea unguium (ICD-10 - B35.1) 06/10/2025 Pain in right toe(s) (ICD-10 - M79.674) 03/07/2025 Tinea unguium (ICD-10 - B35.1) 11/01/2024 Pain in right toe(s) (ICD-10 - M79.674) 11/01/2024 Pain in left toe(s) (ICD-10 - M79.675) 06/10/2025 Pain in left toe(s) (ICD-10 - M79.675) 03/07/2025 Pain in right toe(s) (ICD-10 - M79.674) 03/07/2025 Pain in left toe(s) (ICD-10 - M79.675) 03/07/2025 Other hammer toe(s) (acquired), left foot (ICD-10 - M20.42) 03/07/2025 Ingrown nail (ICD-10 - L60.0) 03/07/2025 Other hammer toe(s) (acquired), right foot (ICD-10 - M20.41) Patient Educated with: DIABETIC FOOT CARE INSTRUCTIONS.p df (DIABETIC FOOT CARE INSTRUCTIONS.p df) Plan Of Treatment Pending Test Test Name Order Date 98455-VPWKGNY NAIL, 6 OR MORE 09/08/2023 06423-AKXLLWU NAIL, 6 OR MORE 12/15/2023 14456-LEZIERJ NAIL, 6 OR MORE 03/15/2024 25284-BAQTTZX NAIL, 6 OR MORE 07/30/2024 07941-GBPDPAS NAIL, 6 OR MORE 11/01/2024 78433-HXWIHBV NAIL, 6 OR MORE 03/07/2025 57242-KVGNIRQ NAIL, 6 OR MORE 06/10/2025 77679-Eyhv Destruction, 1-07/30/2024 39712-Nmpq Destruction, 1-14 03/15/2024 63975-Pnosbiex Plate 12/15/2023 26859-Cstxjutg Plate 03/07/2025 35076-QQCP SKIN LESIONS, OVER 4 06/10/20 25 61228-WDTI SKIN LESIONS, OVER 4 03/07/20 25 15572-SFOS SKIN LESIONS, OVER 4 11/01/19 25 21740-SZJE SKIN LESIONS, OVER 4 03/15/20 24 21670-UVRX SKIN LESIONS, OVER 4 07/30/20 24 19790-DRGU SKIN LESIONS, OVER 4 12/15/19 24 76121-PJMI SKIN LESIONS, 2 TO 4 09/08/20 23 Next Appt Details Provider Name:Bertram Ordaz , 09/30/2025 10:00:00 AM, [address] [facility], [address], [place], [address], Insurance Providers Payer Name Payer Address Payer Phone Subscriber Number Group Number Insured Name Patient Relationship to Insured Coverage Start Date Coverage End Date Medicare [employer] [address] [place] [phone] [id number] Guerline Giordano Self - patient is the insured [facility] [address] [place] [address] [phone] [id number] Guerline Giordano Self - patient is the insured Medical (General) History Medical History History ICD Code Anxiety Arthritis Cataracts Cancer Depression Diabetic Heart disease Numbness Osteoporosis Poor circulation Psychiatric disorder Sciatica sinusitis Hospitalization History Reason Date(Month/[facility]) [facility]
== END 2025-09-25 09:50 | disposition home or self-care (01) ==
LOC: HO.MRI 09:49
PROVIDERS: Visit Provider Psychiatry & Neurology Neurology
DX: G31.84 Mild cognitive impairment of uncertain or unknown etiology (principal)
CPT/HCPCS: 70551